=== PATIENT | male | born 1980 | race African-American/Black ===

== ENCOUNTER 2020-09-03 01:43 | Inpatient (IN) ==
[2020-09-03 02:31] LABS: Basophils % 0.4 % (0.0-0.8); Eosinophils % 0.3 % (0.00-10.9); Hematocrit 47.2 VOL% (42.0-52.0); Hemoglobin 15.8 GM/DL (14.0-18.0); Immature Granulocytes % 0.4 %; Immature Granulocytes Absolute 0.03 #; Lymphocytes # 0.8 10*3/uL (1.4-4.0); Lymphocytes % 10.5 % (21.2-54.2); Mean Corpuscular HGB Conc 33.5 GM/DL (32-36); Mean Corpuscular Volume 80.7 FL (87-102); Mean Platelet Volume 10.7 FL (9.6-12.0); Monocytes % 9.6 % (1.7-12.7); Neutrophils % 78.8 % (38.7-73.9); Platelet Count 207 T/CUMM (130-400); Red Blood Count 5.85 MC/CUMM (3.8-5.5); Red Cell Distribution Width 13.5 % (9.3-17.3); White Blood Count 7.7 T/CUMM (4-12)
[2020-09-03 02:57] LABS: Bilirubin,Total 0.8 MG/DL (0.2-1.0); Calcium 9.5 MG/DL (8.5-10.1); Osmolality,Calculated 274.8 MOS/KG (273-304); Total Protein 7.4 G/DL (6.4-8.3)
[2020-09-03] MEDS ORDERED: ALUM/MAG/SIMETH/LIDO VISC 1:1 30 ML BOTTLE PO STA (03:00)
[2020-09-03] MEDS ORDERED: ONDANSETRON 4 MG/2 ML VIAL IV STA (03:00)
[2020-09-03] MEDS ORDERED: NITROGLYCERIN 2% OINT 1 INCH/GM PACK TOP STA (03:00)
[2020-09-03] MEDS ORDERED: MORPHINE 4 MG/1 ML VIAL IV STA (03:00)
[2020-09-03] MEDS ORDERED: ASPIRIN 325 MG TABLET PO STA (03:00)
[2020-09-03] MEDS ORDERED: ENOXAPARIN 100 MG/ML SYRINGE SUBCUT STA (03:06)
[2020-09-03] MEDS ORDERED: ENOXAPARIN 120 MG/0.8 ML SYRINGE SUBCUT ONE (03:08)
[2020-09-03] MEDS ORDERED: hydrALAZINE 20 MG/1 ML VIAL ONE (03:16)
[2020-09-03] MEDS ORDERED: POTASSIUM CHLORIDE 20 MEQ TABLET PO STA (03:17)
[2020-09-03] MEDS ORDERED: hydrALAZINE 20 MG/1 ML VIAL IV STA (03:20)
[2020-09-03 03:54] LABS: PT Patient Result 11.1 SECS (9.8-11.9); Partial Thromboplastin Time 26.6 SECS (23.9-33.8)
[2020-09-03] MEDS ORDERED: LABETALOL 20 MG/4 ML SYRINGE IV STA (04:01)
[2020-09-03] MEDS ORDERED: METOPROLOL TARTRATE 25 MG TABLET PO STA (04:08)
[2020-09-03] MEDS ORDERED: NICOTINE 21 MG/24 HR PATCH TRANSDERM PRN (04:41)
[2020-09-03] MEDS ORDERED: ONDANSETRON 4 MG/2 ML VIAL IV PRN (04:41)
[2020-09-03] MEDS ORDERED: MORPHINE 4 MG/1 ML VIAL IV PRN (04:41)
[2020-09-03] MEDS ORDERED: GLUCAGON 1 MG VIAL IM PRN (04:41)
[2020-09-03] MEDS ORDERED: diphenhydrAMINE CAP 25 MG CAPSULE PO PRN (04:41)
[2020-09-03] MEDS ORDERED: DEXTROSE 50% 25 GM/50 ML VIAL IV PRN (04:41)
[2020-09-03] MEDS ORDERED: guaiFENesin/DM ER 600-30 MG TABLET PO PRN (04:41)
[2020-09-03] MEDS ORDERED: ACETAMINOPHEN 325 MG TABLET PO PRN (04:41)
[2020-09-03] MEDS ORDERED: ALBUTEROL/IPRATROPIUM 3 ML NEB RESP TX PRN (04:41)
[2020-09-03 05:50] LABS: Risk Ratio 5.16; Thyroid Stimulating Hormone 3.83 uIU/ml (0.358-3.74); VLDL CHOLESTEROL 25.6 MG/DL
[2020-09-03] MEDS: hydrALAZINE 20 MG/1 ML VIAL IV PRN ×2 (05:59→15:00)
[2020-09-03 06:57] LABS: Barbiturates Screen,Urine Negative (Negative); Benzodiazepines Screen,Urine Negative (Negative); Cannabinoid Screen,Urine Negative (Negative); Opiate Screen,Urine Positive (Negative); Phencyclidine Screen,Urine Negative (Negative)
[2020-09-03] MEDS ORDERED: diphenhydrAMINE CAP 25 MG CAPSULE PO ONE (09:10)
[2020-09-03] MEDS ORDERED: POTASSIUM CHLORIDE RIDER 10 MEQ in PREMIX 1 EACH IV PRN (09:10)
[2020-09-03] MEDS ORDERED: MAGNESIUM SULF RIDER 2 GM in PREMIX 1 EACH IV PRN (09:10)
[2020-09-03] MEDS ORDERED: DIAZEPAM 5 MG TABLET PO ONE (09:10)
[2020-09-03] MEDS ORDERED: SODIUM CHLORIDE 0.9% 1,000 ML IV SCH (09:30)
[2020-09-03] MEDS ORDERED: LIDOCAINE 1% 20 ML VIAL ONE (09:35)
[2020-09-03] MEDS ORDERED: HEPARIN/NACL 0.9% 2 UNITS/ML 1,000 ML IV ONE (09:35)
[2020-09-03] MEDS ORDERED: ASPIRIN 325 MG TABLET ONE (09:53)
[2020-09-03] MEDS ORDERED: fentaNYL 100 MCG/2 ML VIAL ONE ×2 (10:07→10:40)
[2020-09-03] MEDS ORDERED: MIDAZOLAM 2 MG/2 ML VIAL ONE ×4 (10:07→11:04)
[2020-09-03] MEDS: ASPIRIN EC 325 MG TABLET PO SCH (10:08)
[2020-09-03] MEDS: METOPROLOL TARTRATE 50 MG TABLET PO SCH ×2 (10:09→20:24)
[2020-09-03] MEDS ORDERED: EPTIFIBATIDE 20,000 MCG/10 ML VIAL ONE ×2 (10:29→10:32)
[2020-09-03] MEDS ORDERED: EPTIFIBATIDE 75 MG/100 ML BOTTLE IV ONE (10:29)
[2020-09-03] MEDS ORDERED: ENOXAPARIN 30 MG/0.3 ML SYRINGE ONE (10:35)
[2020-09-03] MEDS ORDERED: NITROPRUSSIDE 50 MG/2 ML VIAL ONE (10:56)
[2020-09-03] MEDS ORDERED: HEPARIN/NACL 0.9% 2 UNITS/ML 500 ML IV ONE (11:28)
[2020-09-03] MEDS ORDERED: TICAGRELOR 90 MG TABLET ONE (11:32)
[2020-09-03] MEDS ORDERED: ACETAMINOPHEN/CODEINE 300-30 MG TABLET PO PRN (11:45)
[2020-09-03] MEDS ORDERED: NITROGLYCERIN SL 0.4 MG TABLET SL PRN (11:45)
[2020-09-03] MEDS ORDERED: ZALEPLON 5 MG CAPSULE PO PRN (11:45)
[2020-09-03] MEDS ORDERED: SODIUM BICARB INJ 100 MEQ in SODIUM CHLORIDE 0.9% 1,000 ML IV SCH (12:00)
[2020-09-03 13:32] LABS: CKMB % 7.6 %
[2020-09-03 13:41] LABS: Troponin I 45.2 NG/ML (0.00-0.045)
[2020-09-03 19:44] LABS: Bilirubin,Urine Negative (Negative); Blood, Urine Negative (Negative); Glucose,Urine (UA) Negative (Negative); Ketones,Urine Negative (Negative); Mucus,Urine Occasional /LPF (Occasional); Nitrite,Urine Negative (Negative); Protein,Urine Negative; RBC,Urine 1 /HPF (0-4); Urine Appearance CLEAR (Clear); Urine Color Yellow (Yellow); Urine Specific Gravity > 1.060 (1.001-1.035); Urine Urobilinogen < 2.0 EU/DL (0.2-1.0)
[2020-09-03] MEDS: ATORVASTATIN 40 MG TABLET PO SCH (20:24)
[2020-09-03] MEDS: TICAGRELOR 90 MG TABLET PO SCH (20:24)
[2020-09-03 20:28] LABS: CKMB % 4.2 %
[2020-09-03 20:31] LABS: Troponin I 95.8 NG/ML (0.00-0.045)
[2020-09-04 05:46] LABS: Basophils % 0.3 % (0.0-0.8); Hematocrit 44.6 VOL% (42.0-52.0); Hemoglobin 14.8 GM/DL (14.0-18.0); Immature Granulocytes % 0.3 %; Immature Granulocytes Absolute 0.02 #; Lymphocytes # 1.1 10*3/uL (1.4-4.0); Lymphocytes % 18.7 % (21.2-54.2); Mean Corpuscular HGB Conc 33.2 GM/DL (32-36); Mean Corpuscular Volume 81.8 FL (87-102); Mean Platelet Volume 11.2 FL (9.6-12.0); Monocytes % 17.5 % (1.7-12.7); Neutrophils % 63.2 % (38.7-73.9); Platelet Count 173 T/CUMM (130-400); Red Blood Count 5.45 MC/CUMM (3.8-5.5); Red Cell Distribution Width 13.7 % (9.3-17.3); White Blood Count 5.8 T/CUMM (4-12)
[2020-09-04 06:08] LABS: Band Neutrophils 1 % (0-10); Lymphocytes 22 % (20-55); Platelet Estimate Adequate; Segmented Neutrophils 62 % (50-85); Total Cells Counted 100
[2020-09-04 06:09] LABS: Hypochromasia Slight
[2020-09-04 06:17] LABS: Albumin 3.1 G/DL (3.4-5.0); Bilirubin,Direct 0.16 MG/DL (0.0-0.20); Bilirubin,Indirect 0.8 MG/DL (0.0-1.0); Calcium 8.5 MG/DL (8.5-10.1); Osmolality,Calculated 274.7 MOS/KG (273-304); Total Protein 6.7 G/DL (6.4-8.3)
[2020-09-04 06:40] LABS: CKMB % 1.8 %
[2020-09-04 06:41] LABS: Troponin I 56.7 NG/ML (0.00-0.045)
[2020-09-04] MEDS ORDERED: POTASSIUM CHLORIDE 20 MEQ TABLET PO ONE (07:19)
[2020-09-04] MEDS ORDERED: POTASSIUM CHLORIDE 20 MEQ TABLET PO SCH ×2 (09:00→21:00)
[2020-09-04] MEDS: amLODIPine 10 MG TABLET PO SCH (09:08)
[2020-09-04] MEDS: hydroCHLOROthiazide 25 MG TABLET PO SCH (09:08)
[2020-09-04] MEDS: TICAGRELOR 90 MG TABLET PO SCH ×2 (09:08→20:33)
[2020-09-04] MEDS: ASPIRIN EC 81 MG TABLET PO SCH (09:08)
[2020-09-04] MEDS: OLMESARTAN 20 MG TABLET PO SCH (09:09)
[2020-09-04] MEDS: METOPROLOL TARTRATE 50 MG TABLET PO SCH ×2 (09:09→20:34)
[2020-09-04] MEDS: ASPIRIN EC 325 MG TABLET PO SCH (09:09)
[2020-09-04] MEDS ORDERED: ENOXAPARIN 40 MG/0.4 ML SYRINGE SUBCUT SCH (11:30)
[2020-09-04 12:53] LABS: CKMB % 1.4 %
[2020-09-04 12:54] LABS: Troponin I 44.8 NG/ML (0.00-0.045)
[2020-09-04] MEDS: ATORVASTATIN 40 MG TABLET PO SCH (20:34)
[2020-09-05 05:22] LABS: Basophils % 0.8 % (0.0-0.8); Eosinophils % 0.2 % (0.00-10.9); Hemoglobin 16.2 GM/DL (14.0-18.0); Immature Granulocytes % 0.2 %; Immature Granulocytes Absolute 0.01 #; Lymphocytes # 1.2 10*3/uL (1.4-4.0); Lymphocytes % 22.9 % (21.2-54.2); Mean Corpuscular HGB Conc 33.1 GM/DL (32-36); Mean Corpuscular Volume 81.8 FL (87-102); Mean Platelet Volume 11.3 FL (9.6-12.0); Monocytes % 18.2 % (1.7-12.7); Neutrophils % 57.7 % (38.7-73.9); Platelet Count 177 T/CUMM (130-400); Red Blood Count 5.99 MC/CUMM (3.8-5.5); Red Cell Distribution Width 13.3 % (9.3-17.3); White Blood Count 5.3 T/CUMM (4-12)
[2020-09-05 05:42] LABS: Band Neutrophils 5 % (0-10); Hypochromasia 1+; Lymphocytes 18 % (20-55); Metamyelocytes 1 %; Segmented Neutrophils 63 % (50-85); Total Cells Counted 100
[2020-09-05 05:43] LABS: Microcytosis Slight; Ovalocytes Slight; Platelet Estimate Adequate
[2020-09-05 05:49] LABS: CKMB % 0.8 %; Calcium 9.2 MG/DL (8.5-10.1)
[2020-09-05] MEDS ORDERED: METOPROLOL TARTRATE 100 MG TABLET PO SCH (07:44)
[2020-09-05 08:06] VITALS: BP 139/85
[2020-09-05] MEDS: ASPIRIN EC 81 MG TABLET PO SCH (08:17)
[2020-09-05] MEDS: hydroCHLOROthiazide 25 MG TABLET PO SCH (08:17)
[2020-09-05] MEDS: OLMESARTAN 20 MG TABLET PO SCH (08:19)
[2020-09-05] MEDS: amLODIPine 10 MG TABLET PO SCH (08:19)
[2020-09-05] MEDS: TICAGRELOR 90 MG TABLET PO SCH (08:20)
[2020-09-05] MEDS ORDERED: POTASSIUM CHLORIDE 20 MEQ TABLET PO SCH (09:00)
[2020-09-05] MEDS ORDERED: ASCORBIC ACID 500 MG TABLET PO SCH (09:00)
[2020-09-05] MEDS ORDERED: carvediloL 12.5 MG TABLET PO SCH (09:00)
== END 2020-09-05 11:05 | disposition home or self-care (01) | DRG 247 ==
LOC: N.ED 01:43 → N.EDINP 01:43 → N.TELEN 09:48 → SUATTDRO 13:46
PROVIDERS: ADMIT Internal Medicine; ATTEND Internal Medicine Cardiovascular Disease
PROC: CLCCHCL (ICD-10-PCS; 2020-09-03 10:15)

== ENCOUNTER 2020-09-11 10:03 | Inpatient (IN) ==
[2020-09-11] MEDS ORDERED: LOPERAMIDE 2 MG CAPSULE PO STA (10:40)
[2020-09-11] MEDS ORDERED: ONDANSETRON 4 MG/2 ML VIAL IV STA (10:42)
[2020-09-11 12:06] LABS: Basophils % 0.2 % (0.0-0.8); Hematocrit 44.5 VOL% (42.0-52.0); Immature Granulocytes % 0.6 %; Immature Granulocytes Absolute 0.03 #; Lymphocytes # 0.6 10*3/uL (1.4-4.0); Lymphocytes % 13.2 % (21.2-54.2); Mean Corpuscular HGB Conc 33.7 GM/DL (32-36); Mean Corpuscular Volume 79.3 FL (87-102); Mean Platelet Volume 11.1 FL (9.6-12.0); Monocytes % 4.8 % (1.7-12.7); Neutrophils % 81.2 % (38.7-73.9); Platelet Count 143 T/CUMM (130-400); Red Blood Count 5.61 MC/CUMM (3.8-5.5); Red Cell Distribution Width 13.2 % (9.3-17.3); White Blood Count 4.8 T/CUMM (4-12)
[2020-09-11 12:33] LABS: Ferritin 961.2 ng/ml (26-388)
[2020-09-11] MEDS ORDERED: LEVOFLOXACIN INJ 500 MG in PREMIX 1 EACH IV STA (12:56)
[2020-09-11] MEDS ORDERED: SODIUM CHLORIDE 0.9% 1,000 ML IV STA (12:57)
[2020-09-11] MEDS ORDERED: ASPIRIN CHEW 81 MG TABLET PO STA (12:59)
[2020-09-11] MEDS ORDERED: ENOXAPARIN 120 MG/0.8 ML SYRINGE SUBCUT STA (12:59)
[2020-09-11 13:05] LABS: Anisocytosis 1+; Band Neutrophils 19 % (0-10); Lymphocytes 11 % (20-55); Platelet Estimate Adequate; Segmented Neutrophils 66 % (50-85); Total Cells Counted 100
[2020-09-11 13:23] LABS: Albumin 3.1 G/DL (3.4-5.0); Bilirubin,Total 0.7 MG/DL (0.2-1.0); Calcium 8.4 MG/DL (8.5-10.1); Osmolality,Calculated 282.4 MOS/KG (273-304); Total Protein 7.3 G/DL (6.4-8.3)
[2020-09-11 13:26] LABS: INR 1.1; PT Patient Result 11.4 SECS (9.8-11.9); Partial Thromboplastin Time 32.2 SECS (23.9-33.8)
[2020-09-11] MEDS ORDERED: ASPIRIN 325 MG TABLET ONE (13:59)
[2020-09-11] MEDS ORDERED: GLUCAGON 1 MG VIAL IM PRN (14:29)
[2020-09-11] MEDS ORDERED: AZITHROMYCIN 250 MG TABLET PO ONE (14:29)
[2020-09-11] MEDS ORDERED: ONDANSETRON 4 MG/2 ML VIAL IV PRN (14:29)
[2020-09-11] MEDS ORDERED: DEXTROSE 50% 25 GM/50 ML VIAL IV PRN (14:29)
[2020-09-11] MEDS ORDERED: ENOXAPARIN 30 MG/0.3 ML SYRINGE SUBCUT SCH (14:30)
[2020-09-11] MEDS: SODIUM CHLORIDE 0.9% 1,000 ML IV SCH (17:04)
[2020-09-11] MEDS: ASCORBIC ACID 500 MG TABLET PO SCH (21:34)
[2020-09-12 05:32] LABS: Basophils % 0.4 % (0.0-0.8); Hematocrit 42.4 VOL% (42.0-52.0); Hemoglobin 14.1 GM/DL (14.0-18.0); Immature Granulocytes % 0.4 %; Immature Granulocytes Absolute 0.02 #; Lymphocytes # 0.7 10*3/uL (1.4-4.0); Lymphocytes % 14.8 % (21.2-54.2); Mean Corpuscular HGB Conc 33.3 GM/DL (32-36); Mean Corpuscular Volume 80.8 FL (87-102); Mean Platelet Volume 11.9 FL (9.6-12.0); Monocytes % 4.3 % (1.7-12.7); Neutrophils % 80.1 % (38.7-73.9); Platelet Count 151 T/CUMM (130-400); Red Blood Count 5.25 MC/CUMM (3.8-5.5); Red Cell Distribution Width 13.2 % (9.3-17.3); White Blood Count 4.5 T/CUMM (4-12)
[2020-09-12 05:56] LABS: Albumin 2.8 G/DL (3.4-5.0); Bilirubin,Total 1.4 MG/DL (0.2-1.0); Osmolality,Calculated 283.2 MOS/KG (273-304)
[2020-09-12 06:02] LABS: Hypochromasia 1+; Microcytosis Slight; Ovalocytes Slight; Platelet Estimate Adequate
[2020-09-12] MEDS: SODIUM CHLORIDE 0.9% 1,000 ML IV SCH ×2 (06:51→21:25)
[2020-09-12] MEDS ORDERED: POTASSIUM CHLORIDE 20 MEQ TABLET PO ONE (07:43)
[2020-09-12] MEDS: DEXAMETHASONE 4 MG/1 ML VIAL IV SCH (08:43)
[2020-09-12] MEDS: ASCORBIC ACID 500 MG TABLET PO SCH ×2 (08:43→21:25)
[2020-09-12] MEDS: ZINC GLUCONATE 50 MG TABLET PO SCH (08:43)
[2020-09-12] MEDS: ASPIRIN EC 81 MG TABLET PO SCH (08:43)
[2020-09-12] MEDS: ACETAMINOPHEN 325 MG TABLET PO PRN (08:44)
[2020-09-12] MEDS: TICAGRELOR 90 MG TABLET PO SCH ×2 (08:44→21:25)
[2020-09-12] MEDS: PANTOPRAZOLE 40 MG TABLET PO SCH (08:44)
[2020-09-12] MEDS: AZITHROMYCIN 250 MG TABLET PO SCH (08:44)
[2020-09-12] MEDS: cefTRIAXone 1,000 MG in SYRINGE 1 EACH IV SCH (08:44)
[2020-09-12] MEDS ORDERED: carvediloL 12.5 MG TABLET PO SCH (09:00)
[2020-09-12] MEDS ORDERED: NON-FORMULARY MEDICATION (Ascorbic Acid (Vitamin C) [Vitamin C] 1,000 mg Tablet) PO SCH (09:00)
[2020-09-12] MEDS: ENOXAPARIN 150 MG/ML SYRINGE SUBCUT SCH ×2 (12:31→21:25)
[2020-09-12 14:27] LABS: Bilirubin,Urine Negative (Negative); Blood, Urine Large mg/dL (Negative); Glucose,Urine (UA) Negative (Negative); Granular Casts,Urine 14 /LPF (0-1); Hyaline Casts,Urine 4 /LPF (0-3); Ketones,Urine Negative (Negative); Mucus,Urine Occasional /LPF (Occasional); Nitrite,Urine Negative (Negative); Protein,Urine 100 MG/DL; RBC,Urine 1 /HPF (0-4); Squamous Epithelial Cell,Urine Occasional /HPF (0-10); Urine Appearance CLOUDY (Clear); Urine Color Yellow (Yellow); Urine Specific Gravity 1.017 (1.001-1.035); Urine Urobilinogen < 2.0 EU/DL (0.2-1.0); WBC,Urine 4 /HPF (0-6)
[2020-09-12] MEDS ORDERED: NITROGLYCERIN SL 0.4 MG TABLET SL PRN (15:27)
[2020-09-12] MEDS: ATORVASTATIN 40 MG TABLET PO SCH (21:25)
[2020-09-13 06:37] LABS: Calcium 8.6 MG/DL (8.5-10.1); Osmolality,Calculated 279.4 MOS/KG (273-304)
[2020-09-13] MEDS: TICAGRELOR 90 MG TABLET PO SCH ×2 (09:31→21:30)
[2020-09-13] MEDS: MULTIVITAMIN (CENTRUM) TABLET PO SCH (09:31)
[2020-09-13] MEDS: AZITHROMYCIN 250 MG TABLET PO SCH (09:31)
[2020-09-13] MEDS: ZINC GLUCONATE 50 MG TABLET PO SCH (09:31)
[2020-09-13] MEDS: ASPIRIN EC 81 MG TABLET PO SCH (09:31)
[2020-09-13] MEDS: cefTRIAXone 1,000 MG in SYRINGE 1 EACH IV SCH (09:31)
[2020-09-13] MEDS: ASCORBIC ACID 500 MG TABLET PO SCH (09:31)
[2020-09-13] MEDS: PANTOPRAZOLE 40 MG TABLET PO SCH (09:31)
[2020-09-13] MEDS: DEXAMETHASONE 4 MG/1 ML VIAL IV SCH (09:31)
[2020-09-13] MEDS: ENOXAPARIN 150 MG/ML SYRINGE SUBCUT SCH ×2 (10:18→21:30)
[2020-09-13] MEDS: SODIUM CHLORIDE 0.9% 1,000 ML IV SCH (10:18)
[2020-09-13 11:58] LABS: Basophils % 0.2 % (0.0-0.8); Hematocrit 44.7 VOL% (42.0-52.0); Hemoglobin 14.9 GM/DL (14.0-18.0); Immature Granulocytes % 0.5 %; Immature Granulocytes Absolute 0.03 #; Lymphocytes # 0.5 10*3/uL (1.4-4.0); Lymphocytes % 7.9 % (21.2-54.2); Mean Corpuscular HGB Conc 33.3 GM/DL (32-36); Mean Corpuscular Volume 80.7 FL (87-102); Mean Platelet Volume 11.6 FL (9.6-12.0); Monocytes % 3.2 % (1.7-12.7); Neutrophils % 88.2 % (38.7-73.9); Platelet Count 153 T/CUMM (130-400); Red Blood Count 5.54 MC/CUMM (3.8-5.5); Red Cell Distribution Width 13.6 % (9.3-17.3); White Blood Count 6.2 T/CUMM (4-12)
[2020-09-13 12:07] LABS: Calcium 8.6 MG/DL (8.5-10.1); Osmolality,Calculated 284.1 MOS/KG (273-304)
[2020-09-13] MEDS: LOPERAMIDE 2 MG CAPSULE PO PRN ×2 (12:33→21:30)
[2020-09-13] MEDS: ACETAMINOPHEN 325 MG TABLET PO PRN (12:33)
[2020-09-13] MEDS: ATORVASTATIN 40 MG TABLET PO SCH (21:30)
[2020-09-14] MEDS: ASCORBIC ACID 500 MG TABLET PO SCH ×3 (02:33→21:15)
[2020-09-14 06:53] LABS: Basophils % 0.1 % (0.0-0.8); Hematocrit 43.9 VOL% (42.0-52.0); Hemoglobin 14.7 GM/DL (14.0-18.0); Immature Granulocytes % 0.6 %; Immature Granulocytes Absolute 0.04 #; Lymphocytes # 0.4 10*3/uL (1.4-4.0); Lymphocytes % 5.5 % (21.2-54.2); Mean Corpuscular HGB Conc 33.5 GM/DL (32-36); Mean Corpuscular Volume 80.7 FL (87-102); Mean Platelet Volume 11.9 FL (9.6-12.0); Neutrophils % 89.8 % (38.7-73.9); Platelet Count 180 T/CUMM (130-400); Red Blood Count 5.44 MC/CUMM (3.8-5.5); Red Cell Distribution Width 13.5 % (9.3-17.3); White Blood Count 6.7 T/CUMM (4-12)
[2020-09-14 07:02] LABS: Calcium 8.7 MG/DL (8.5-10.1)
[2020-09-14] MEDS: AZITHROMYCIN 250 MG TABLET PO SCH (09:06)
[2020-09-14] MEDS: cefTRIAXone 1,000 MG in SYRINGE 1 EACH IV SCH (09:07)
[2020-09-14] MEDS: TICAGRELOR 90 MG TABLET PO SCH ×2 (09:07→21:15)
[2020-09-14] MEDS: ASPIRIN EC 81 MG TABLET PO SCH (09:07)
[2020-09-14] MEDS: ZINC GLUCONATE 50 MG TABLET PO SCH (09:07)
[2020-09-14] MEDS: PANTOPRAZOLE 40 MG TABLET PO SCH (09:07)
[2020-09-14] MEDS: MULTIVITAMIN (CENTRUM) TABLET PO SCH (09:07)
[2020-09-14] MEDS: ENOXAPARIN 150 MG/ML SYRINGE SUBCUT SCH ×2 (09:08→21:14)
[2020-09-14] MEDS: DEXAMETHASONE 4 MG/1 ML VIAL IV SCH (09:08)
[2020-09-14] MEDS: SODIUM CHLORIDE 0.9% 1,000 ML IV SCH ×3 (09:28→21:12)
[2020-09-14] MEDS: ACETAMINOPHEN 325 MG TABLET PO PRN (12:41)
[2020-09-14] MEDS: amLODIPine 10 MG TABLET PO SCH (16:28)
[2020-09-14] MEDS: ATORVASTATIN 40 MG TABLET PO SCH (21:15)
[2020-09-15] MEDS: hydrALAZINE 20 MG/1 ML VIAL IV PRN ×3 (00:02→21:40)
[2020-09-15] MEDS: SODIUM CHLORIDE 0.9% 1,000 ML IV SCH (04:20)
[2020-09-15 05:53] LABS: Basophils % 0.2 % (0.0-0.8); Hematocrit 42.6 VOL% (42.0-52.0); Hemoglobin 14.3 GM/DL (14.0-18.0); Immature Granulocytes % 1.9 %; Immature Granulocytes Absolute 0.11 #; Lymphocytes # 0.5 10*3/uL (1.4-4.0); Mean Corpuscular HGB Conc 33.6 GM/DL (32-36); Mean Corpuscular Volume 79.9 FL (87-102); Mean Platelet Volume 11.3 FL (9.6-12.0); Monocytes % 6.7 % (1.7-12.7); Neutrophils % 82.2 % (38.7-73.9); Platelet Count 182 T/CUMM (130-400); Red Blood Count 5.33 MC/CUMM (3.8-5.5); Red Cell Distribution Width 13.4 % (9.3-17.3); White Blood Count 5.7 T/CUMM (4-12)
[2020-09-15 06:21] LABS: Calcium 7.9 MG/DL (8.5-10.1); Osmolality,Calculated 280.5 MOS/KG (273-304)
[2020-09-15 06:52] LABS: Band Neutrophils 1 % (0-10); Lymphocytes 10 % (20-55); Microcytosis 1+; Platelet Estimate Normal; Segmented Neutrophils 87 % (50-85)
[2020-09-15 06:53] LABS: Total Cells Counted 100
[2020-09-15] MEDS ORDERED: POTASSIUM CHLORIDE 20 MEQ TABLET PO ONE (07:49)
[2020-09-15] MEDS: DEXAMETHASONE 4 MG/1 ML VIAL IV SCH (08:03)
[2020-09-15] MEDS: ZINC GLUCONATE 50 MG TABLET PO SCH (08:03)
[2020-09-15] MEDS: cefTRIAXone 1,000 MG in SYRINGE 1 EACH IV SCH (08:03)
[2020-09-15] MEDS: amLODIPine 10 MG TABLET PO SCH (08:03)
[2020-09-15] MEDS: ASPIRIN EC 81 MG TABLET PO SCH (08:03)
[2020-09-15] MEDS: MULTIVITAMIN (CENTRUM) TABLET PO SCH (08:03)
[2020-09-15] MEDS: TICAGRELOR 90 MG TABLET PO SCH ×2 (08:04→20:00)
[2020-09-15] MEDS: AZITHROMYCIN 250 MG TABLET PO SCH (08:04)
[2020-09-15] MEDS: PANTOPRAZOLE 40 MG TABLET PO SCH (08:04)
[2020-09-15] MEDS: ASCORBIC ACID 500 MG TABLET PO SCH ×2 (08:04→20:00)
[2020-09-15] MEDS: LOPERAMIDE 2 MG CAPSULE PO PRN (08:56)
[2020-09-15] MEDS: ENOXAPARIN 150 MG/ML SYRINGE SUBCUT SCH ×2 (09:02→21:40)
[2020-09-15] MEDS: ATORVASTATIN 40 MG TABLET PO SCH (20:00)
[2020-09-16] MEDS: hydrALAZINE 20 MG/1 ML VIAL IV PRN (04:33)
[2020-09-16 07:07] LABS: Calcium 9.3 MG/DL (8.5-10.1); Osmolality,Calculated 278.7 MOS/KG (273-304); Total Protein 8.1 G/DL (6.4-8.3)
[2020-09-16] MEDS: ZINC GLUCONATE 50 MG TABLET PO SCH (09:13)
[2020-09-16] MEDS: PANTOPRAZOLE 40 MG TABLET PO SCH (09:14)
[2020-09-16] MEDS: LOPERAMIDE 2 MG CAPSULE PO PRN (09:14)
[2020-09-16] MEDS: TICAGRELOR 90 MG TABLET PO SCH (09:14)
[2020-09-16] MEDS: ASCORBIC ACID 500 MG TABLET PO SCH (09:14)
[2020-09-16] MEDS: DEXAMETHASONE 4 MG/1 ML VIAL IV SCH (09:15)
[2020-09-16] MEDS: ASPIRIN EC 81 MG TABLET PO SCH (09:15)
[2020-09-16] MEDS: amLODIPine 10 MG TABLET PO SCH (09:15)
[2020-09-16] MEDS: MULTIVITAMIN (CENTRUM) TABLET PO SCH (09:15)
[2020-09-16] MEDS: cefTRIAXone 1,000 MG in SYRINGE 1 EACH IV SCH (10:27)
[2020-09-16 11:23] VITALS: BP 145/109
[2020-09-16] MEDS: ENOXAPARIN 150 MG/ML SYRINGE SUBCUT SCH (11:46)
== END 2020-09-16 15:10 | disposition home health service (06) | DRG 177 ==
LOC: N.ED 10:03 → N.EDINP 14:29 → SUATTDRO 14:29 → N.5E 15:52 → N.2E 16:23
PROVIDERS: ADMIT Internal Medicine; ATTEND Family Medicine